=== PATIENT | female | born 2000 | race Caucasian/White ===

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

== ENCOUNTER 2022-09-14 17:05 | Emergency (ER) | payer MEDICAID, SELFPAY ==
[2022-09-14 17:07] VITALS: BP 103/74; PULSE 86; RESP 16; TEMP 36.3; O2SAT 97; BMI 28.1
--- NOTE | 2022-09-14 17:38 | EX.ED.GENINJ ---
HPI <BRYSON Multani - Last Filed: 09/14/22 18:11> History of Present Illness Chief Complaint: Laceration Narrative Narrative: Patient presenting today because her bellybutton ring got ripped out this afternoon. She states that she was washing dishes and the piercing got stuck on the edge of the sink and pulled out. She states she has had a tetanus in the last 5 years. She is not on any blood thinners. PFSH <BRYSON Multani - Last Filed: 09/14/22 18:11> PFSH Medical History IUD (intrauterine device) in place Home Medications levonorgestrel 14 mcg/24 hrs (3 yrs) 13.5 mg intrauterine device (Ivonne) 1 device intrauterine ONCE 02/23/21 [History Last Taken Unknown] Allergy/AdvReac Type Severity Reaction Status Date / Time amoxicillin Allergy Hives Verified 09/14/22 17:08 Penicillins [PCN] Allergy Hives Verified 09/14/22 17:08 adhesive tape AdvReac Rash Verified 09/14/22 17:08 Family History Grandmother Hypertension Other Brain cancer Breast cancer Liver cancer Lung cancer Surgical History s/p tongue clipped Social History Smoking Status: Current every day smoker tobacco type: cigarettes alcohol intake: never substance use type: does not use caffeine: Yes what type of physical activity do you participate in: walking seatbelt use: always additional social history: [facility] [employer] ROS <BRYSON Multani - Last Filed: 09/14/22 18:11> ROS ED Constitutional Constitutional ED: Denies chills or fever(s) Cardiovascular Cardiovascular: Denies chest pain or palpitations Respiratory/Chest Respiratory/Chest: Denies cough or dyspnea Gastrointestinal Gastrointestinal: Denies abdominal pain, nausea or vomiting Musculoskeletal Musculoskeletal: Denies arthralgias or myalgias Integumentary Reports laceration Neurologic Neurologic: Denies weakness Psychiatric Psychiatric: Denies anxiety, depression, suicidal ideation or suicidal thoughts EXAM <BRYSON Multani - Last Filed: 09/14/22 18:11> Physical Exam Const Vital Signs: 09/14/22 17:07 Temperature 97.4 F L Temperature Source Temporal Pulse Rate 86 Respiratory Rate 16 Blood Pressure 103/74 Blood Pressure Mean 83 Pulse Ox 97 Oxygen Delivery Method Room Air Positive well nourished, well developed and no apparent distress General Appearance ED: well developed HEENT Reports normocephalic and head/scalp atraumatic Mouth ED: Yes moist mucous membranes normal Eyes PERRL and EOMs intact bilaterally Neck full ROM and supple Chest Wall inspection of chest normal Resp normal respiratory effort and clear to auscultation bilaterally Cardio regular rate and regular rhythm GI soft to palpation, non-tender, non-distended and no masses Back/Spine normal ROM and normal to inspection Extremity normal to inspection and full ROM Neuro oriented x3, CN's II-XII intact bilaterally, moves all extremities, no focal motor deficits and no sensory deficits noted Sensorium / Orientation: awake and alert Psych mental status grossly normal and thought process normal Skin Skin Narrative: Patient's bellybutton ring pulled out, but did not rip through the skin. There is no laceration but there is mild bleeding to the area. <Dr. Cb Foster MD - Last Filed: 09/14/22 22:03> Physical Exam Const Vital Signs: 09/14/22 17:07 Temperature 97.4 F L Temperature Source Temporal Pulse Rate 86 Respiratory Rate 16 Blood Pressure 103/74 Blood Pressure Mean 83 Pulse Ox 97 Oxygen Delivery Method Room Air MDM <BRYSON Multani - Last Filed: 09/14/22 18:11> [facility] Narrative Medical decision making narrative: Patient presenting today because her bellybutton ring accidentally got pulled out this afternoon. There is no laceration to the area or anything that needs sutured. The piercing got pulled through, it did not get ripped out, but as the ball at the top of the piercing went through it caused irritation and bleeding on its way out. The area was cleaned with chlorhexidine, bacitracin ointment was applied, and a bandage was placed. I have educated her on signs of infection to look out for. She will be discharged home in stable condition and is comfortable with plan. <Dr. Cb Foster MD - Last Filed: 09/14/22 22:03> [facility] Treatment and Re-Evaluation Narrative: I have personally performed a face to face assessment of the patient and have reviewed the ÁNGEL Note. I performed a substantive portion of the visit including all aspects of the following. My king findings include: History: Patient had her navel ring pulled out when she accidentally caught it on the edge of a sink standing up to reach for something above it. She states it came out complete and there were no parts missing. She had some bleeding from her navel. She feels she pulled it right through the hole that it was in. It did not tear the skin. No other complaints. Exam: There is a little bit of blood at each tip. But there is no tear of the skin. There is nothing that can be sutured repair. Her abdomen overall is benign. Medical Decision Making: This area is clean. It should heal well by secondary intention. We did talk about signs of infection. We talked about regular cleansing and using antibiotic topical ointment [id number] on it. Discharge Plan Triage Chief Complaint: Laceration ED Midlevel Provider: Radha Wright ED Provider: Cb Foster Dx/Rx/DC Orders Clinical Impression: Laceration Instructions: ED Laceration Small or ... Prescriptions: No Action Ivonne 14 mcg/24 hrs (3 yrs) 13.5 mg intrauterine device 1 device intrauterine ONCE Rx Instructions: as a single dose Primary Care Provider: Kyleigh Weber Referrals: Kyleigh Weber MD [Primary Care Provider] - As Needed Activity Restrictions/Additional Instructions: Keep an eye out for any signs of infection such as increased redness, swelling, pus-like discharge. Disposition Disposition: Home, Self Care
== END 2022-09-14 18:29 | disposition home or self-care (01) ==
PROVIDERS: Emergency Provider Emergency Medicine; PCP Pediatrics; Visit Provider Emergency Medicine
DX: S31.125A Laceration of abdominal wall with foreign body, periumbilic region without penetration into peritoneal cavity, initial encounter (principal); F17.210 Nicotine dependence, cigarettes, uncomplicated; W26.8XXA Contact with other sharp object(s), not elsewhere classified, initial encounter
CPT/HCPCS: 99282

== ENCOUNTER 2022-10-08 07:24 | Emergency (ER) | payer MEDICAID, SELFPAY ==
[2022-10-08 07:24] VITALS: BP 120/87; PULSE 75; RESP 16; TEMP 36.8; O2SAT 100; BMI 29.0
--- NOTE | 2022-10-08 07:50 | ED.VIS.DENTA ---
HPI History of Present Illness Chief Complaint: Dental Informant: patient Narrative Narrative: Patient has been having painful right maxillary molars 1 and 2 for the last couple months, she has seen a dentist and is supposed to get some of these teeth pulled in addition to the wisdom tooth that is coming in behind it, she states that in the last several days the pain has gradually worsened without any obvious etiology, and after calling dentistry this morning that she was advised to come to the hospital to get prescribed antibiotics. She is allergic to penicillin was on clindamycin successfully before. She denies any fevers or chills, or drainage/foul taste in her mouth, or any other systemic symptoms or facial swelling. PFSH PFSH Medical History IUD (intrauterine device) in place Home Medications levonorgestrel 14 mcg/24 hrs (3 yrs) 13.5 mg intrauterine device (Ivonne) 1 device intrauterine ONCE 02/23/21 [History Last Taken Unknown] clindamycin HCl 150 mg capsule 300 mg PO 4X/DAY #80 CAPSULES 10/08/22 [Rx Last Taken Unknown] Allergy/AdvReac Type Severity Reaction Status Date / Time amoxicillin Allergy Hives Verified 10/08/22 07:27 Penicillins [PCN] Allergy Hives Verified 10/08/22 07:27 adhesive tape AdvReac Rash Verified 10/08/22 07:27 Family History Grandmother Hypertension Other Brain cancer Breast cancer Liver cancer Lung cancer Surgical History s/p tongue clipped Social History Smoking Status: Current every day smoker tobacco type: cigarettes alcohol intake: never substance use type: does not use caffeine: Yes what type of physical activity do you participate in: walking seatbelt use: always additional social history: Goes to [employer] ROS ROS ED Constitutional Constitutional ED: Denies chills or fever(s) Eyes Eyes: Denies change in vision or double vision ENT ENT ED: Reports dental pain; Denies sinus pain or throat swelling Cardiovascular Cardiovascular: Denies chest pain or palpitations Respiratory/Chest Respiratory/Chest: Denies cough or dyspnea Integumentary Denies abscess or rash Neurologic Neurologic: Denies headache(s), paresthesias or weakness EXAM Physical Exam Const Vital Signs: 10/08/22 07:24 Temperature 98.2 F Temperature Source Temporal Pulse Rate 75 Respiratory Rate 16 Blood Pressure 120/87 H Blood Pressure Mean 98 Pulse Ox 100 Oxygen Delivery Method Room Air Positive well nourished and well developed General Appearance ED: well developed and NAD HEENT HEENT Narrative: Very tender teeth 2-3, no subluxation, loosening, obvious abscess or discharge expressible. No trismus. Tooth #1 is partially erupted and nontender and without signs of infection. There is previous silver-colored filling in tooth #3, this is the less tender tooth. Face and Sinus: sinuses nontender Throat: posterior oropharynx normal Eyes PERRL and EOMs intact bilaterally Neck no lymphadenopathy and supple Resp normal respiratory effort Neuro oriented x3 and CN's II-XII intact bilaterally Sensorium / Orientation: alert Gait (Neuro): normal gait Psych mental status grossly normal and thought process normal Skin no rashes or lesions noted and no wounds MDM MDM MDM Narrative Medical decision making narrative: Patient is well-appearing does not require prescription narcotics at this time and is advised to take NSAIDs, prescribed clindamycin, also advised to eat yogurt or take a probiotic while on this medication to prevent antibiotic associated diarrhea. She does not have a history of candidal infections while on clindamycin in the past which we also discussed. Discharge Plan Triage Chief Complaint: Dental ED Provider: Anoop Lassiter Dx/Rx/DC Orders Clinical Impression: Infected dental caries Instructions: ED Dental Pain Prescriptions: New clindamycin HCl 150 mg capsule 300 mg PO 4X/DAY Qty: 80 0RF No Action Ivonne 14 mcg/24 hrs (3 yrs) 13.5 mg intrauterine device 1 device intrauterine ONCE Rx Instructions: as a single dose Primary Care Provider: Kyleigh Weber Referrals: Kyleigh Weber MD [Primary Care Provider] - Dentist,Your [STAFF PHYSICIAN] - 5-7 Days Disposition Disposition: Home, Self Care
== END 2022-10-08 08:10 | disposition home or self-care (01) ==
PROVIDERS: Emergency Provider Emergency Medicine; PCP Pediatrics; Visit Provider Emergency Medicine
DX: K02.9 Dental caries, unspecified (principal); F17.210 Nicotine dependence, cigarettes, uncomplicated
CPT/HCPCS: 99281; 99282

== ENCOUNTER → 2022-10-12 | Outpatient (CLI) | payer MEDICAID, SELFPAY ==
--- NOTE | 2022-10-12 12:50 | US_ITS ---
ACR Level 3 findings have been noted. An addendum which confirms receipt of the report will follow. STUDY: ULTRASOUND OF THE FEMALE PELVIS - COMPLETE REASON FOR EXAM: Female, 22 years old. AUB IUD CHECK LMP: TECHNIQUE: Transabdominal and Transvaginal TECHNICAL QUALITY: Adequate. COMPARISON: CT abdomen and pelvis February 06, 2021 FINDINGS: The uterus is anteverted and is in a midline position. The uterus measures 8.5 x 4.6 x 3.3 cm. Normal uterine cervix. The endometrium measures 2.6 mm in thickness, and is hyperechoic. There is no demonstrated endometrial mass. There is no demonstrated myometrial mass. I.U.D. - The patient does have an I.U.D. since the prior study the IUD appears to migrated into the lower uterine segment bordering the proximal aspect of the cervix. The left-sided prominent is somewhat difficult to visualize. The right-sided prominence visualized in the right side of the endometrium more lower uterine segment. The right ovary is visualized. The right ovary measures 31 x 2.4 x 1.7 cm. There is no right ovarian cyst or ovarian mass. There is no visualized right adnexal mass or complex lesion. There is normal arterial and normal venous vascularity. No torsion. The left ovary is visualized. The left ovary measures 3.1 x 2.5 x 2.0 cm. There is no left ovarian cyst or ovarian mass. There is no visualized left adnexal mass or complex lesion. There is normal arterial and normal venous vascularity. No torsion. There is no fluid in the cul-de-sac. The pre void volume of the bladder was 364 ml. . Polycystic ovary disease: No. US/Transvaginal Non- IMPRESSION: Since prior study February 06, 2021 CT abdomen pelvis, Migrated IUD into the lower uterine segment proximal cervix. Recommend FINANCIAL ECONOMIST consult for possible repositioning. Electronically Signed: Corina Salinas MD at 15:35 EDT ,
--- NOTE | 2022-10-12 12:50 | US_ITS ---
ACR Level 3 findings have been noted. An addendum which confirms receipt of the report will follow. STUDY: ULTRASOUND OF THE FEMALE PELVIS - COMPLETE REASON FOR EXAM: Female, 22 years old. AUB IUD CHECK LMP: TECHNIQUE: Transabdominal and Transvaginal TECHNICAL QUALITY: Adequate. COMPARISON: CT abdomen and pelvis February 06, 2021 FINDINGS: The uterus is anteverted and is in a midline position. The uterus measures 8.5 x 4.6 x 3.3 cm. Normal uterine cervix. The endometrium measures 2.6 mm in thickness, and is hyperechoic. There is no demonstrated endometrial mass. There is no demonstrated myometrial mass. I.U.D. - The patient does have an I.U.D. since the prior study the IUD appears to migrated into the lower uterine segment bordering the proximal aspect of the cervix. The left-sided prominent is somewhat difficult to visualize. The right-sided prominence visualized in the right side of the endometrium more lower uterine segment. The right ovary is visualized. The right ovary measures 31 x 2.4 x 1.7 cm. There is no right ovarian cyst or ovarian mass. There is no visualized right adnexal mass or complex lesion. There is normal arterial and normal venous vascularity. No torsion. The left ovary is visualized. The left ovary measures 3.1 x 2.5 x 2.0 cm. There is no left ovarian cyst or ovarian mass. There is no visualized left adnexal mass or complex lesion. There is normal arterial and normal venous vascularity. No torsion. There is no fluid in the cul-de-sac. The pre void volume of the bladder was 364 ml. . Polycystic ovary disease: No. US/Pelvic (Non ) IMPRESSION: Since prior study February 06, 2021 CT abdomen pelvis, Migrated IUD into the lower uterine segment proximal cervix. Recommend MACHINE PACKAGING TECHNICIAN consult for possible repositioning. Electronically Signed: Corina Salinas MD at 15:35 EDT ,
== END | disposition home or self-care (01) ==
LOC: US 12:48
PROVIDERS: PCP Pediatrics; Referring Provider Nurse Practitioner Women's Health; Visit Provider Nurse Practitioner Women's Health
DX: R10.2 Pelvic and perineal pain (principal); Z30.431 Encounter for routine checking of intrauterine contraceptive device
CPT/HCPCS: 76830; 76856

== ENCOUNTER → 2023-01-17 | Outpatient (CLI) | payer SELFPAY ==
[2023-01-17 19:27] LABS: hCG Titer Quant., Serum 14831 mIU/mL (1-3)
== END | disposition home or self-care (01) ==
PROVIDERS: PCP Pediatrics; Visit Provider Registered Nurse
DX: N91.2 Amenorrhea, unspecified (principal)
CPT/HCPCS: 36415; 84702

== ENCOUNTER 2023-01-24 03:16 | Emergency (ER) | payer MEDICAID, SELFPAY ==
[2023-01-24 03:16] VITALS: BP 129/69; PULSE 78; RESP 16; TEMP 36.8; O2SAT 99; BMI 27.2
--- NOTE | 2023-01-24 03:49 | ED.VIS.FEGU ---
HPI HPI - Female History of Present Illness Chief Complaint: Narrative Narrative: Patient is a 22-year-old female currently 4-6 weeks presenting for concern of miscarriage. Patient states that she has been having increased nausea, fatigue and feels that her body is harder than normal and looked up her symptoms and concern that she having a silent miscarriage. She denies any lower abdominal pain or vaginal bleeding. She denies any urinary symptoms. She been try to drink more fluid. Has had 2 prior early miscarriages. No other complaints or concerns at this time. PFSH PFSH Medical History IUD (intrauterine device) in place Home Medications fluconazole 150 mg tablet 150 mg PO .COMPLEX #2 tabs 10/22/22 [Rx Last Taken Unknown] Allergy/AdvReac Type Severity Reaction Status Date / Time amoxicillin Allergy Hives Verified 01/24/23 03:19 Penicillins [PCN] Allergy Hives Verified 01/24/23 03:19 adhesive tape AdvReac Rash Verified 01/24/23 03:19 Family History Grandmother Hypertension Other Brain cancer Breast cancer Liver cancer Lung cancer Surgical History s/p tongue clipped Social History current occupational status: unemployed Smoking Status: Current every day smoker tobacco type: cigarettes alcohol intake: never substance use type: does not use caffeine: Yes what type of physical activity do you participate in: walking seatbelt use: always ROS ROS ED Constitutional Constitutional ED: Reports other Details: Fatigue ; Denies chills or fever(s) Cardiovascular Cardiovascular: Denies chest pain Gastrointestinal Gastrointestinal: Reports nausea and vomiting; Denies abdominal pain Genitourinary Genitourinary ED: Denies dysuria, hematuria or urinary frequency Musculoskeletal Musculoskeletal: Denies arthralgias or myalgias Integumentary Denies rash Neurologic Neurologic: Denies headache(s) or weakness Psychiatric Psychiatric: Reports anxiety EXAM Physical Exam Const Vital Signs: 01/24/23 03:16 Temperature 98.2 F Temperature Source Temporal Pulse Rate 78 Respiratory Rate 16 Blood Pressure 129/69 H Blood Pressure Mean 89 Pulse Ox 99 Oxygen Delivery Method Room Air Positive well nourished and well developed General Appearance ED: well developed and NAD HEENT Reports moist mucous membranes Neck supple Chest Wall inspection of chest normal and palpation of chest normal Resp normal respiratory effort and clear to auscultation bilaterally Cardio regular rate, regular rhythm and no JVD GI normal to inspection, nondistended, normoactive bowel sounds, soft to palpation and non-tender Narrative: Deferred Extremity normal to inspection Neuro oriented x3 Sensorium / Orientation: alert Psych Mood & Affect: anxious Skin no rashes or lesions noted MDM MDM MDM Narrative Medical decision making narrative: Patient is evaluated for concern of miscarriage. I counseled her that her symptoms are not consistent with a miscarriage especially her lack of vaginal bleeding or abdominal pain. Chart review shows that patient had a MASCARA MOLDER visit through [facility] on 01/17 [place] [id number]. She is not complain of any urinary symptoms. I do not think a urinalysis is needed. She is not having any vaginal bleeding and I do not think requires RhoGAM. I do not think she requires workup for ectopic . Counseled that from an emergency standpoint she does not have any obstetric emergency based on my physical exam and her history. She is reassured by this. I did offer bedside ultrasound. This showed single intrauterine gestation with heart rate of 119. Patient was quite relieved to see this. I did peer financial counselor her that there is no way to prevent a miscarriage and gave her return precautions to the emergency room. I did peer financial counselor her as well that a silent miscarriage is not a medical term and she likely would be better off not googling her symptoms. Her mother is in the room who agrees. Is given return precautions. Is cleared to return to work. Discharge home in stable condition Discharge Plan Triage Chief Complaint: ED Provider: Dayna Rich Dx/Rx/DC Orders Clinical Impression: Concern about losing without diagnosis, Instructions: ED Established ... Prescriptions: No Action fluconazole 150 mg tablet 150 mg PO .COMPLEX Qty: 2 0RF Rx Instructions: 150 mg PO take one po now and repeat in 3 days Primary Care Provider: Kyleigh Weber Referrals: Kyleigh Weber MD [Primary Care Provider] - Activity Restrictions/Additional Instructions: Your ultrasound showed a single intrauterine with a heart rate of 119 bpm today. This is normal for early . Please continue to follow-up with her MASCARA MOLDER. Disposition Disposition: Home, Self Care Discharge Date/Time: 01/24/23 03:54
[2023-01-24 03:53] VITALS: BP 129/69; PULSE 78; RESP 16
== END 2023-01-24 03:54 | disposition home or self-care (01) ==
PROVIDERS: Emergency Provider Emergency Medicine; PCP Pediatrics; Visit Provider Emergency Medicine
DX: Z03.79 Encounter for other suspected maternal and fetal conditions ruled out (principal); Z3A.01 Less than 8 weeks gestation of pregnancy; F17.210 Nicotine dependence, cigarettes, uncomplicated; F41.9 Anxiety disorder, unspecified
CPT/HCPCS: 99282

== ENCOUNTER → 2023-02-01 | Outpatient (CLI) | payer MEDICAID, SELFPAY ==
--- NOTE | 2023-02-01 09:29 | US_ITS ---
STUDY: FIRST TRIMESTER OBSTETRICAL ULTRASOUND REASON FOR EXAM: Female, 22 years old . dating. LMP: November 19, 2022. TECHNIQUE: Transvaginal TECHNICAL QUALITY: Adequate. PRIOR ULTRASOUND: None. FINDINGS: There is visualization of a single gestational sac in a normal intrauterine position. The mean sac diameter (MSD) measures 2.78 cm, . gestational sac shape is within normal limits. There is a visualized yolk sac. The yolk sac measures 4.3 mm. The placenta is non-visualized. There is visualization of a live embryo. The crown-rump length (CRL) measures 1.69 cm, indicating an estimated gestational age (EGA) of 8 weeks, 0 days. There is demonstrated cardiac activity with a heart rate of 163 bpm. The estimated gestation age (EGA) by LMP is 10 weeks, 5 days. The estimated date of delivery (JACQUELINE) by LMP is August 25, 2023. The estimated gestation age (EGA) by US is 8 weeks, 0 days. The estimated date of delivery (JACQUELINE) by US is September 13, 2023. The uterus measures 10.5 cm x 7.9 cm x 6.1 cm. There is evidence of a sub-chorionic hematoma measuring 2.2 cm x 3.2 cm x 1.9 cm. There is no demonstrated uterine fibroid. The cervix is closed. The right ovary measures 3.8 cm x 3.3 cm x 1.5 cm. There is no right ovarian cyst. There is no visualized right adnexal mass or complex lesion. The left ovary measures 3.4 cm x 4.1 cm x 2.2 cm. There is a 1.1 cm x 1.5 cm x 0.9 cm left ovarian follicle. There is no visualized left adnexal mass or complex lesion. There is no fluid in the cul de sac. US/Transvaginal w/Preg US IMPRESSION: Single live intrauterine gestation with a gestational age of 8 weeks. Small subchorionic hematoma. Left ovarian follicle. Electronically Signed: Dandre Mcarthur MD at 13:43 EDT ,
== END | disposition home or self-care (01) ==
LOC: US 09:29
PROVIDERS: PCP Pediatrics; Referring Provider Registered Nurse; Visit Provider Registered Nurse
DX: Z36.87 Encounter for antenatal screening for uncertain dates (principal); N91.2 Amenorrhea, unspecified
CPT/HCPCS: 76817

== ENCOUNTER → 2023-02-19 | Outpatient (CLI) | payer MEDICAID, SELFPAY ==
[2023-02-19 11:58] LABS: Absolute Lymphocyte Count 2.42 X10^3/uL (0.83-4.51); Absolute Neutrophil Count 6.7 X10^3/uL (2.0-7.7); Basophil# 0.05 X10^3/uL; Basophil% 0.5 % (0-1); Eosinophil# 0.04 X10^3/uL; Eosinophils% 0.4 % (0-5); Hematocrit 41.9 % (37-47); Hemoglobin 13.5 g/dL (12.0-15.0); Lymphocyte # 2.42 X10^3/ul (0.83-4.51); Lymphocyte % 24.5 % (19-41); Mean Corp Hgb Conc 32.2 g/dL (32-36); Mean Corpuscular Volume 86.7 fL (81-99); Mean Platelet Vol. 9.8 fl (6.2-12.0); Monocyte# 0.68 X10^3/uL; Monocyte% 6.9 % (0-10); NRBC Flagged by Analyzer 0 % (0-5); Neutrophil # 6.66 X10^3/uL (2.7-7.7); Neutrophil % 67.5 % (47-70); Platelet Count 297 K/mm3 (150-450); RBC Distribution Width CV 12.9 % (11.6-14.6); RBC Distribution Width SD 40.7 fl (35.1-43.9); Red Blood Count 4.83 M/mm3 (4.2-5.4); White Blood Count 9.9 K/mm3 (4.4-11.0)
[2023-02-19 12:47] LABS: NATERA MAILED SPECIMEN
[2023-02-19 15:59] LABS: HIV - WCH Non-Reactive (Nonreactive); Hepatitis B Surface Antigen Non-Reactive (Nonreactive); Hepatitis C Antibody Non-Reactive (Nonreactive); Rubella IgG Reactive (Nonreactive); Syphilis Antibodies Non-reactive
[2023-02-21 20:07] LABS: Chlamydia By Nucleic Acid AMP Negative (Negative); Gonococcus By Nucleic Acid AMP Negative (Negative)
== END | disposition home or self-care (01) ==
PROVIDERS: Referring Provider Registered Nurse; Visit Provider Registered Nurse
DX: Z34.81 Encounter for supervision of other normal pregnancy, first trimester (principal); Z31.5 Encounter for procreative genetic counseling
CPT/HCPCS: 36415; 85025; 86703; 86762; 86780; 86803; 86850; 86900; 86901; 87086; 87088; 87340; 87491; 87591

== ENCOUNTER 2023-04-29 00:10 | Outpatient (CLI) | payer MEDICAID, SELFPAY ==
[2023-04-29 00:36] VITALS: TEMP 37.3; O2SAT 100
[2023-04-29 00:37] VITALS: BP 120/80; PULSE 115
[2023-04-29 01:02] VITALS: BMI 28.9
[2023-04-29 01:34] LABS: Absolute Lymphocyte Count 2.36 X10^3/uL (0.83-4.51); Absolute Neutrophil Count 9.6 X10^3/uL (2.0-7.7); Basophil# 0.04 X10^3/uL; Basophil% 0.3 % (0-1); Eosinophil# 0.08 X10^3/uL; Eosinophils% 0.6 % (0-5); Hematocrit 36.3 % (37-47); Hemoglobin 11.7 g/dL (12.0-15.0); Lymphocyte # 2.36 X10^3/ul (0.83-4.51); Lymphocyte % 17.9 % (19-41); Mean Corp Hgb Conc 32.2 g/dL (32-36); Mean Corpuscular Hgb 28.3 pg (27.0-32.0); Mean Corpuscular Volume 87.9 fL (81-99); Mean Platelet Vol. 9.6 fl (6.2-12.0); Monocyte# 1.08 X10^3/uL; Monocyte% 8.2 % (0-10); NRBC Flagged by Analyzer 0 % (0-5); Neutrophil # 9.59 X10^3/uL (2.7-7.7); Neutrophil % 72.7 % (47-70); Platelet Count 308 K/mm3 (150-450); RBC Distribution Width CV 13.3 % (11.6-14.6); RBC Distribution Width SD 43.5 fl (35.1-43.9); Red Blood Count 4.13 M/mm3 (4.2-5.4); White Blood Count 13.2 K/mm3 (4.4-11.0)
[2023-04-29 01:46] LABS: Prothrombin Time (Protime)PT. 13.1 SECONDS (11.7-14.9)
[2023-04-29 01:48] LABS: Partial Thromboplast Time 28.7 Seconds (24.1-36.2)
[2023-04-29 01:55] LABS: Fibrinogen 465 mg/dl (203-444)
[2023-04-29 02:15] VITALS: BP 106/53; TEMP 36.7
[2023-04-29 02:16] VITALS: PULSE 83; O2SAT 99
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
== END 2023-04-29 03:22 | disposition home or self-care (01) ==
LOC: WPOUT 00:21 → WP 00:21
PROVIDERS: Referring Provider Obstetrics & Gynecology; Visit Provider Obstetrics & Gynecology
DX: Z04.1 Encounter for examination and observation following transport accident (principal); O99.332 Smoking (tobacco) complicating pregnancy, second trimester; Z3A.20 20 weeks gestation of pregnancy; F17.210 Nicotine dependence, cigarettes, uncomplicated; Z56.0 Unemployment, unspecified
CPT/HCPCS: 36415; 59025; 59050; 85025; 85384; 85461; 85610; 85730; 86850; 86900; 86901; 96372; J2790

== ENCOUNTER → 2023-06-11 | Outpatient (CLI) | payer MEDICAID, SELFPAY ==
[2023-06-11 14:27] LABS: Absolute Lymphocyte Count 2.03 X10^3/uL (0.83-4.51); Absolute Neutrophil Count 8.7 X10^3/uL (2.0-7.7); Basophil# 0.04 X10^3/uL; Basophil% 0.3 % (0-1); Eosinophil# 0.06 X10^3/uL; Eosinophils% 0.5 % (0-5); Hemoglobin 11.4 g/dL (12.0-15.0); Lymphocyte # 2.03 X10^3/ul (0.83-4.51); Lymphocyte % 17.2 % (19-41); Mean Corp Hgb Conc 31.7 g/dL (32-36); Mean Corpuscular Hgb 27.9 pg (27.0-32.0); Mean Corpuscular Volume 88.2 fL (81-99); Mean Platelet Vol. 9.2 fl (6.2-12.0); Monocyte% 7.6 % (0-10); NRBC Flagged by Analyzer 0 % (0-5); Neutrophil # 8.72 X10^3/uL (2.7-7.7); Neutrophil % 73.8 % (47-70); Platelet Count 311 K/mm3 (150-450); RBC Distribution Width CV 12.6 % (11.6-14.6); RBC Distribution Width SD 40.7 fl (35.1-43.9); Red Blood Count 4.08 M/mm3 (4.2-5.4); White Blood Count 11.8 K/mm3 (4.4-11.0)
[2023-06-11 15:04] LABS: Glucose Challenge Gest 1H 50g 94 mg/dL (70-140)
[2023-06-11 15:39] LABS: HIV - WCH Non-Reactive (Nonreactive); Syphilis Antibodies Non-reactive
== END | disposition home or self-care (01) ==
LOC: PAVLAB 14:04
PROVIDERS: Referring Provider Registered Nurse; Visit Provider Registered Nurse
DX: Z34.90 Encounter for supervision of normal pregnancy, unspecified, unspecified trimester (principal); Z3A.00 Weeks of gestation of pregnancy not specified
CPT/HCPCS: 36415; 82950; 85025; 86703; 86780

== ENCOUNTER 2023-07-19 10:51 | Outpatient (CLI) | payer MEDICAID, SELFPAY ==
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
== END 2023-07-19 23:59 | disposition home or self-care (01) ==
LOC: PAVLAB 10:52
PROVIDERS: Referring Provider Registered Nurse; Visit Provider Registered Nurse
DX: Z34.93 Encounter for supervision of normal pregnancy, unspecified, third trimester (principal); Z3A.33 33 weeks gestation of pregnancy
CPT/HCPCS: 36415; 86850; 86900; 86901

== ENCOUNTER → 2023-08-16 | Outpatient (CLI) | payer MEDICAID, SELFPAY ==
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
--- OUTSIDE RECORDS SUMMARY | 2023-08-16 12:28 | XMS RPT_ITS | CCD ---
Author Name Unknown Address [address] [place] [address] Organization [facility] Care Team Providers Care Polisher Sand Name Role Phone Jami Weber MD Primary Care Provider Unavailable Primary Care Provider Unavailjennie e JAMI WEBER Primary Care Unavailable JAMI WEBER Primary Care Unavailable [facility], Primary Care Unavailable JODIE BE Referring Unavailable JODIE BE Attending Unavailable Allergies Allergy Classification Reported Allergen(s) Allergy Type Date of Onset Reaction(s) Facility (6 sources) Amoxicillin; Translations: [AMOXICILLIN] Drug Allergy 03-06-2005 [facility] Work Phone: (6 sources) Penicillins; Translations: [PENICILLINS] Propensity to adverse reactions 08-23-2005 [facility] Work Phone: (3 sources) Adhesive Tape-Silicones; Translations: [ADHESIVE TAPE-SILICONES] Drug Allergy 02-23-2021 [facility] Medications Current Medications Medication Drug Class(es) [...] 98.01 [degF] Alexy Stringer MD Work Phone: [facility] 03-30-2023 08:34-0400 Body weight 69.85 kg Alexy Stringer MD Work Phone: [facility] 03-30-2023 08:34-0400 Diastolic blood pressure 68 mm[Hg] Alexy Stringer MD Work Phone: [facility] 03-30-2023 08:34-0400 Heart rate 96 /min Alexy Stringer MD Work Phone: [facility] 03-30-2023 08:34-0400 Respiratory rate 18 /min Alexy Stringer MD Work Phone: [facility] 03-30-2023 08:34-0400 SaO2% (BldA) [Mass fraction] 98 % Alexy Stringer MD Work Phone: [facility] 03-30-2023 08:34-0400 Systolic blood pressure 117 mm[Hg] Alexy Stringer MD Work Phone: [facility] 12-04-2022 14:26-0400 Body temperature 98.29 [degF] Deonte Gaston APRN.TELECOMMUNICATIONS SWITCH TECHNICIAN Work Phone: [facility] 12-04-2022 14:26-0400 Body weight 70.58 kg Deonte Gaston APRN.TELECOMMUNICATIONS SWITCH TECHNICIAN Work Phone: [facility] 12-04-2022 14:26-0400 Diastolic blood pressure 64 mm[Hg] Deonte Gaston APRN.TELECOMMUNICATIONS SWITCH TECHNICIAN Work Phone: [facility] 12-04-2022 14:26-0400 Heart rate 111 /min Deonte Gaston APRN.TELECOMMUNICATIONS SWITCH TECHNICIAN Work Phone: [facility] 12-04-2022 14:26-0400 Respiratory rate 16 /min Deonte Alek BOWLING FLOOR MANAGER.TELECOMMUNICATIONS SWITCH TECHNICIAN Work Phone: [facility] 12-04-2022 14:26-0400 SaO2% (BldA) [Mass fraction] 99 % Deonte Alek BOWLING FLOOR MANAGER.TELECOMMUNICATIONS SWITCH TECHNICIAN Work Phone: [facility] 12-04-2022 14:26-0400 Systolic blood pressure 122 mm[Hg] Deonte Alek BOWLING FLOOR MANAGER.TELECOMMUNICATIONS SWITCH TECHNICIAN Work Phone: [facility] 05-15-2022 08:31-0500 Body temperature 98.01 [degF] Shruthi Mendoza BOWLING FLOOR MANAGER.TELECOMMUNICATIONS SWITCH TECHNICIAN Work Phone: [facility] 05-15-2022 08:31-0500 Body weight 74.84 kg Shruthi Mendoza BOWLING FLOOR MANAGER.TELECOMMUNICATIONS SWITCH TECHNICIAN Work Phone: [facility] 05-15-2022 08:31-0500 Diastolic blood pressure 78 mm[Hg] Shruthi Mendoza BOWLING FLOOR MANAGER.TELECOMMUNICATIONS SWITCH TECHNICIAN Work Phone: [facility] 05-15-2022 08:31-0500 Heart rate 84 /min Shruthi Mendoza BOWLING FLOOR MANAGER.TELECOMMUNICATIONS SWITCH TECHNICIAN Work Phone: [facility] 05-15-2022 08:31-0500 Respiratory rate 18 /min Shruthi Mendoza BOWLING FLOOR MANAGER.TELECOMMUNICATIONS SWITCH TECHNICIAN Work Phone: [facility] 05-15-2022 08:31-0500 SaO2% (BldA) [Mass fraction] 97 % Shruthi Mendoza BOWLING FLOOR MANAGER.TELECOMMUNICATIONS SWITCH TECHNICIAN Work Phone: [facility] 05-15-2022 08:31-0500 Systolic blood pressure 110 mm[Hg] Shruthi Mendoza BOWLING FLOOR MANAGER.TELECOMMUNICATIONS SWITCH TECHNICIAN Work Phone: [facility] 01-04-2022 15:35-0400 Body height 159.4 cm Jami Weber MD Work Phone: [facility] 01-04-2022 15:35-0400 Body mass index (BMI) [Percentile] Per age and sex 94.61 % Jami Weber MD Work Phone: [facility] 01-04-2022 15:35-0400 Body temperature 98.29 [degF] Jami eWber MD Work Phone: [facility] 01-04-2022 15:35-0400 Body weight 78.88 kg Jami Weber MD Work Phone: [facility] 01-04-2022 15:35-0400 Diastolic blood pressure 60 mm[Hg] Jami Weber MD Work Phone: [facility] 01-04-2022 15:35-0400 Heart rate 68 /min Jami Weber MD Work Phone: [facility] 01-04-2022 15:35-0400 Respiratory rate 16 /min Jami Weber MD Work Phone: [facility] 01-04-2022 15:35-0400 Systolic blood pressure 104 mm[Hg] Jami Webre MD Work Phone: [facility] 12-11-2021 15:23-0400 Body temperature 98.01 [degF] Jami Weber MD Work Phone: [facility] 12-11-2021 15:23-0400 Body weight 80.31 kg Jami Weber MD Work Phone: [facility] 12-11-2021 15:23-0400 Diastolic blood pressure 66 mm[Hg] Jami Weber MD Work Phone: [facility] 12-11-2021 15:23-0400 Heart rate 78 /min Jami Weber MD Work Phone: [facility] 12-11-2021 15:23-0400 Respiratory rate 18 /min Jami Weber MD Work Phone: [facility] 12-11-2021 15:23-0400 Systolic blood pressure 102 mm[Hg] Jami Weber MD Work Phone: [facility] Encounters Encounter Date Encounter Type Care Provider Facility Start: 05-20-2023 End: 05-20-2023 ambulatory NO PRIMARY CARE [facility] Start: 03-30-2023 End: 03-30-2023 ambulatory JAMI WEBER Facility:[facility] Start: 03-30-2023 End: 03-30-2023 Patient encounter procedure Alexy Stringer MD Work Phone: [facility] Procedures Date Procedure Procedure Detail Performing Clinician Start: 01-27-2021 Adult depression screening assessment Jami Weber MD Work Phone: Plan of Treatment Date Care Activity Detail Author Start: 01-27-2024 Urine microalbumin profile [facility] Start: 02-15-2023 Influenza vaccination [facility] Start: 06-17-2022 DEPRESSION ASSESSMENT DEPRESSION ASSESSMENT [facility] Start: 02-15-2022 Influenza vaccination INFLUENZA (#1) [facility] Start: 01-27-2022 Adult depression screening assessment DEPRESSION SCREENING [facility] Start: 06-17-2021 DEPRESSION ASSESSMENT DEPRESSION ASSESSMENT [facility] Start: 2020 CHLAMYDIA SCREENING (18-24) CHLAMYDIA SCREENING (18-24) [facility] Start: 2020 GC (GONORRHEA) SCREENING (18-24) GC (GONORRHEA) SCREENING (18-24) [facility] Start: 2020 HEPATITIS C SCREENING HEPATITIS C SCREENING [facility] Start: 2020 HIV SCREENING HIV SCREENING [facility] Start: 2018 Meningococcal B Vaccine: Consider Based On Risk (1 of 2 - Patient Seeks Protection) Meningococcal B Vaccine: Consider Based On Risk (1 of 2 - Patient Seeks Protection) [facility] Start: 2016 PEDS TO ADULT TRANSITION ANNUAL ASSESSMENT PEDS TO ADULT TRANSITION ANNUAL ASSESSMENT [facility] Start: 2012 MENINGOCOCCAL B: Consider based on risk (1 of 2 - Risk Bexsero 2-dose series) MENINGOCOCCAL B: Consider based on risk (1 of 2 - Risk Bexsero 2-dose series) [facility] Start: 2002 COVID-19 VACCINE (#1) COVID-19 VACCINE (#1) [facility] COVID & INFLUENZA A/ B & RSV NAAT, ROUTINE COVID & INFLUENZA A/B & RSV NAAT, ROUTINE Microbiology Routine URI, acute Exposure to influenza Ordered: 03/30/2023 [facility] Work Phone: Immunizations Immunization Date Immunization Notes Care Provider Fa ivania 08-20-2019 meningococcal polysaccharide (groups A, C, Y and W-135) diphtheria toxoid conjugate vaccine (MCV4P) Jami Weber MD Work Phone: [facility] 01-05-2016 Human Papillomavirus 9-valent vaccine Jami Weber MD Work Phone: [facility] 01-26-2014 human papilloma viru s vaccine, quadrivalent Jami Weber MD Work Phone: [facility] 01-26-2014 meningococcal polysaccharide (groups A, C, Y and W-135) diphtheria toxoid conjugate vaccine (MCV4P) Jami Weber MD Work Phone: [facility] 01-26-2014 tetanus toxoid, redu vianca diphtheria toxoid, and acellular pertussis vaccine, adsorbed Jami Weber MD Work Phone: [facility] 04-23-2008 influenza virus vacc ine, unspecified formulation Jami Weber MD Work Phone: [facility] Work Phone: 02-02-2008 varicella virus vaccine Britney Weber MD Work Phone: [facility] Work Phone: 02-19-2007 diphtheria, tetanus toxoids and acellular pertussis vaccine Jami Weber MD Work Phone: [facility] 02-19-2007 measles, mumps and rubella virus vaccine Jami Weber MD Work Phone: [facility] 02-19-2007 poliovirus vaccine, inactivated Jami Weber MD Work Phone: [facility] 05-22-2005 hepatitis B vaccine, pediatric or pediatric/adolescent dosage Jami Weber MD Work Phone: [facility] Work Phone: 02-29-2004 diphtheria, tetanus toxoids and acellular pertussis vaccine Jami Weber MD Work Phone: [facility] Work Phone: 02-29-2004 hepatitis B vaccine, pediatric or pediatric/adolescent dosage Jami Weber MD Work Phone: [facility] Work Phone: 10-04-2003 DTaP-hepatitis B and poliovirus vaccine Jami Weber MD Work Phone: [facility] Work Phone: 10-04-2003 haemophilus influenz ae type b vaccine, HbOC conjugate Jami Weber MD Work Phone: [facility] Work Phone: 08-20-2003 diphtheria, tetanus toxoids and acellular pertussis vaccine Jami Weber MD Work Phone: [facility] Work Phone: 08-20-2003 haemophilus influenz ae type b vaccine, HbOC conjugate Jami Weber MD Work Phone: [facility] Work Phone: 08-20-2003 pneumococcal conjuga te vaccine, 7 valent Jami Weber MD Work Phone: [facility] Work Phone: 08-20-2003 poliovirus vaccine, inactivated Jami Weber MD Work Phone: [facility] Work Phone: 05-27-2003 measles, mumps and rubella virus vaccine Jami Weber MD Work Phone: [facility] Work Phone: 05-27-2003 pneumococcal conjuga te vaccine, 7 valent Jami Weber MD Work Phone: [facility] Work Phone: 05-27-2003 varicella virus vaccine Britney Weber MD Work Phone: [facility] Work Phone: 2002 diphtheria, tetanus toxoids and acellular pertussis vaccine Jami Weber MD Work Phone: [facility] Work Phone: 2002 haemophilus influenz ae type b vaccine, HbOC conjugate Jami Weber MD Work Phone: [facility] Work Phone: 2002 pneumococcal conjuga te vaccine, 7 valent Jami Weber MD Work Phone: [facility] Work Phone: 2002 poliovirus vaccine, inactivated Jami Weber MD Work Phone: [facility] Work Phone: Payers Date Payer Category Payer Medicaid [id number] 2008 Medicaid [facility] MEDIC AID [facility] MEDICAID [id number] 2008-Present [phone] [address] [place] [address] Medicaid [id number] 2008 Medicaid [id number] 2008 Medicaid [id number] 2002 Unknown [id number] Social History Date Type Detail Facility Start: 05-15-2022 End: 12-04-2022 Tobacco smoking status [facility]IS Never smoked tobacco [facility] Start: 12-11-2021 End: 03-30-2023 Alcohol intake Current non-drinker of alcohol (finding) [facility] Start: 2002 Sex Assigned At Not on file [facility] Start: 12-01-2021 End: 05-15-2022 Exposure to SARS-CoV-2 (event) Not sure [facility] History of tobacco use Passive smoker [facility] Start: 05-15-2022 Tobacco use and exposure Smoke less tobacco non-user [facility] Start: 05-15-2022 Tobacco Comment Parents smoke in the home. [facility] Start: 12-04-2022 Tobacco use and exposure User of smo keless tobacco [facility] Start: 06-29-2022 End: 03-30-2023 History of Social function [facility] Start: 06-29-2022 End: 03-30-2023 Tobacco use panel [facility] National Score (1-10 0), lower number is lower risk 67 [facility] Start: 12-21-2022 [facility] Clinical Notes 12-11-2021 to 03-30-2023 Alexy Stringer MD - 03/30/2023 8:39 AM EDTPatient InstructionsDeonte Gaston APRN.TELECOMMUNICATIONS SWITCH TECHNICIAN - 12/04/2022 3:02 PM EDTShruthi Mendoza APRN.TELECOMMUNICATIONS SWITCH TECHNICIAN - 05/15/2022 8:37 AM ESTPatient Instructions Note Date & Type Note Facility 03-30-2023 Note HNO ID: [id number] Author: Alexy Stringer MD Service: ? Author [...] treatment window for influenza. Alexy Stringer MD [facility] 03-30-2023 History of Present illness Narrative [...] Alexy Stringer MD documented in this encounter [facility] 12-04-2022 Note HNO ID: [id number] Author: Deonte Gaston APRN.TELECOMMUNICATIONS SWITCH TECHNICIAN Service: ? Author Type: Nurse Practitioner Type: [...] 0.1 % TOPICAL CREAM Deonte Gaston APRN.CNP [facility] 12-04-2022 Instructions Deonte Gaston APRN.CNP - [...] plants grow in many areas across the [facility] and throughout the world. East of the [facility], poison sydnee commonly grows as a climbing vine. In the [place] area and west, poison sydnee tends to grow low to the ground as a shrub. Poison oak most often grows west of the [facility], and poison sumac inhabits boggy areas in the southeastern part of the [facility]. The plants are not usually found in [...] poison sydnee dermatitis. documented in this encounter [facility] 12-04-2022 History of Present illness Narrative Images [...] Deonte Gaston APRN.KIRK documented in this encounter [facility] 05-15-2022 Note HNO ID: [id number] Author: Shruthi Mendoza APRN.KIRK Service: ? Author Type: Nurse Practitioner Type: Progress Notes Filed: 05/15/2022 9:10 AM Note Text: This note was created using [employer]. Subjective Paddy Darnell is a 21 year [...] history is provided by the patient. No speech and language tutor was used. Dental Problem This is a [...] Breath sounds: Normal (more content not included)... [facility] 05-15-2022 History of Present illness Narrative This note was created using [employer]. Subjective Paddy Darnell is a 21 year [...] history is provided by the patient. No speech and language tutor was used. Dental Problem This is a [...] Diagnosis Date ADHD (attention deficit hyperactivity disorder) [facility] Neurology Anxiety Menarche 2014 Age 13 NEGATIVE [...] infection. No AOM EAC normal Shruthi Mendoza APRN.TELECOMMUNICATIONS SWITCH TECHNICIAN documented in this encounter [facility] 01-04-2022 History of Present illness Narrative FOLLOW UP VISIT PEDIATRIC ADHD SERVICE DATE: 01/04/2022 Paddy Darnell is a 21 year old female who [...] to do so). 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 She is currently looking for a job. She states she has trouble falling asleep at times. History was obtained from: mother and patient PDMP website checked and validated. All prescriptions have been APPROPRIATELY filled. No suspicious activity was identified. 01/04/2022 by Jami Weber MD PAST MEDICAL HISTORY Diagnosis Date ADHD (attention deficit hyperactivity disorder) [facility] Neu[facility] Anxiety Menarche 2014 Age 13 NEGATIVE HISTORY OF 01-26-2014 Normal Color Vision ROS: Abdominal pain: no Appetite problems: variable. [place] food makes her nauseated. Drowsiness: yes sometimes [...] which included preparing to see the patient, toxy-yj-[id number] patient care, completing clinical documentation, obtaining and/or reviewing separately obtained history, performing a medically appropriate examination and counseling and educating the patient/family/caregiver. SIGNATURE: Jami Weber MD PATIENT NAME: Paddy Darnell DATE: January 04, 2022 TIME: 3:41 PM documented in this encounter [facility] 01-04-2022 Instructions Jami Weber MD - 01/04/2022 [...] drinks Go! Be healthy, inside and out! [email or web address] documented in this encounter [facility] 12-11-2021 Instructions Jami Weber MD - 12/11/2021 [...] drinks Go! Be healthy, inside and out! [email or web address] documented in this encounter [facility] 12-11-2021 History of Present illness Narrative PEDIATRIC [...] TIME: 3:40 PM documented in this encounter [facility] Diagnosis Attention deficit hyperactivity disorder (ADHD), combined type- Primary [facility] Diagnosis Pain, dental- Primary Unspecified disorder of the teeth and supporting structures Ear pain, right Otalgia, unspecified [facility] Diagnosis Rhus dermatitis- Primary Contact dermatitis and other eczema due to plants (except food) [facility] Diagnosis URI, acute- Primary Acute upper respiratory infections of unspecified site Exposure to influenza Contact with or exposure to other viral diseases documented in this encounter [facility] Summary Purpose Family History No Family History Records FoundNo Family History Records FoundNo Family History Records Found Advance Directives No Advanced Directives Records FoundNo Advanced Directives Records FoundNo Advanced Directives Records Found Additional Source Comments INFORMATION SOURCE (unrecogn ized section and content) DATE CREATED AUTHOR AUTHOR'S ORGANIZ ATION 04/01/2023 [facility] DATE CREATED AUTHOR AUTHOR'S ORGANIZ ATION 06/29/2023 [facility] Source Comments (unrecognize d section and content) In the event this informatio n is protected by the Federal Confidentiality of Alcohol and Drug Abuse Patient Records regulations: The Federal rules restrict any use of the information to criminally investigate or prosecute any alcohol or drug abuse patient.[facility] the event this information is protected by the Federal Confidentiality of Alcohol and Drug Abuse Patient Records regulations: The Federal rules restrict any use of the information to criminally investigate or prosecute any alcohol or drug abuse patient.[facility] the event this information is protected by the Federal Confidentiality of Alcohol and Drug Abuse Patient Records regulations: The Federal rules restrict any use of the information to criminally investigate or prosecute any alcohol or drug abuse patient.[facility] the event this information is protected by the Federal Confidentiality of Alcohol and Drug Abuse Patient Records regulations: The Federal rules restrict any use of the information to criminally investigate or prosecute any alcohol or drug abuse patient.[facility] the event this information is protected by the Federal Confidentiality of Alcohol and Drug Abuse Patient Records regulations: The Federal rules restrict any use of the information to criminally investigate or prosecute any alcohol or drug abuse patient.[facility] Reason for Visit (unrecogniz ed section and [...] Care Teams (unrecognized sec tion and content) Polisher Sand Relationship Specialty Start Date End Date Jami Weber MD [address], [place] [address] PCP - General Pediatrics 02/03/14 FOR RECORDS [...] BE BASED ON THE PRIMARY CLINICAL RECORDS. [facility]. provides no warranty or guarantee of the accuracy or completeness of information in this document.
== END | disposition home or self-care (01) ==
LOC: US 12:07
PROVIDERS: PCP Nurse Practitioner Family; Referring Provider Obstetrics & Gynecology; Visit Provider Obstetrics & Gynecology
DX: O36.60X0 Maternal care for excessive fetal growth, unspecified trimester, not applicable or unspecified (principal); Z3A.00 Weeks of gestation of pregnancy not specified
CPT/HCPCS: 76816

== ENCOUNTER → 2023-08-22 | Outpatient (CLI) | payer MEDICAID, SELFPAY | END | disposition home or self-care (01) | LOC: LABSPEC 10:37 | PROVIDERS: PCP Nurse Practitioner Family; Referring Provider Advanced Practice Midwife; Visit Provider Advanced Practice Midwife | DX: Z34.90 Encounter for supervision of normal pregnancy, unspecified, unspecified trimester (principal); Z3A.00 Weeks of gestation of pregnancy not specified | CPT/HCPCS: 87081 ==

== ENCOUNTER → 2023-09-12 | Outpatient (CLI) | payer MEDICAID, SELFPAY ==
--- NOTE | 2023-09-12 16:52 | US_ITS ---
STUDY: SECOND AND THIRD TRIMESTER OBSTETRICAL ULTRASOUND REASON FOR EXAM: Female, 23 years old DELANEY LMP: December 07, 2022. TECHNIQUE: Transabdominal TECHNICAL QUALITY: Adequate. PRIOR ULTRASOUND: Comparison is made with prior study August 16, 2023. FINDINGS: There is a single intrauterine fetus. The fetus is in a cephalic presentation. There is demonstrated cardiac activity with a heart rate of 137 bpm. There is a normal amniotic fluid volume. The largest amniotic fluid pocket measures 6.6 cm. The amniotic fluid index (DELANEY) is 13.2 cm. The placenta is posterior in location and is not low lying. There are Grade 2 placental changes. The cervix was not measured due to the head positioning. The adnexal regions are not visualized. BIOMETRY: Age by LMP: 39 weeks, 6 days. JACQUELINE by LMP: September 13, 2023. US/OB Limited (No Biometrics) IMPRESSION: Normal amniotic fluid index. Electronically Signed: Dandre Mcarthur MD at 9:24 EDT ,
== END | disposition home or self-care (01) ==
LOC: US 16:51
PROVIDERS: PCP Nurse Practitioner Family; Referring Provider Obstetrics & Gynecology; Visit Provider Obstetrics & Gynecology
DX: O26.849 Uterine size-date discrepancy, unspecified trimester (principal); Z3A.00 Weeks of gestation of pregnancy not specified
CPT/HCPCS: 76815

== ENCOUNTER 2023-09-20 07:05 | Inpatient (IN) | payer MEDICAID, SELFPAY ==
[2023-04-29 00:36] VITALS: RESP 16
[2023-04-29 02:15] VITALS: RESP 16
[2023-09-20] VITALS (49 sets, daily range): BP systolic 88–137; BP diastolic 49–85; PULSE 56–106; RESP 16–21; TEMP 36.1–37.4; O2SAT 78–100; BMI 39.0
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
[2023-09-20] MEDS: Lactated Ringers 1,000 ML 50 ML IV (07:55)
[2023-09-20 08:42] LABS: Absolute Lymphocyte Count 2.23 X10^3/uL (0.83-4.51); Absolute Neutrophil Count 6.9 X10^3/uL (2.0-7.7); Basophil# 0.02 X10^3/uL; Basophil% 0.2 % (0-1); Eosinophil# 0.01 X10^3/uL; Eosinophils% 0.1 % (0-5); Hematocrit 35.4 % (37-47); Hemoglobin 11.4 g/dL (12.0-15.0); Lymphocyte # 2.23 X10^3/ul (0.83-4.51); Lymphocyte % 21.9 % (19-41); Mean Corp Hgb Conc 32.2 g/dL (32-36); Mean Corpuscular Volume 80.8 fL (81-99); Monocyte# 0.96 X10^3/uL; Monocyte% 9.4 % (0-10); NRBC Flagged by Analyzer 0 % (0-5); Neutrophil % 67.8 % (47-70); Platelet Count 358 K/mm3 (150-450); RBC Distribution Width CV 14.7 % (11.6-14.6); RBC Distribution Width SD 43.2 fl (35.1-43.9); Red Blood Count 4.38 M/mm3 (4.2-5.4); White Blood Count 10.2 K/mm3 (4.4-11.0)
[2023-09-20 09:16] LABS: Syphilis Antibodies Non-reactive
[2023-09-20] MEDS: Oxytocin 15 Units/NS 250ml 15 UNITS/250 ML IV.SOLN 2 UNITS IV (09:41)
[2023-09-20] MEDS: LACTATED RINGERS 500 ML 999 ML IV ×3 (13:10→21:03)
[2023-09-20] MEDS: fentaNYL-bupivacaine (epidural) 100 ML BAG EPIDURAL ×2 (17:15→22:08)
[2023-09-20] MEDS: Lactated Ringers 1,000 ML 200 ML IV (19:05)
[2023-09-20] MEDS: Ondansetron 4 MG/2 ML Vial IV (20:15)
[2023-09-20] MEDS: 0.9% Saline Lock 10 ML Syringe IV (20:17)
[2023-09-21] VITALS (18 sets, daily range): BP systolic 89–125; BP diastolic 56–78; PULSE 50–83; RESP 16–18; TEMP 36.4–37.4; O2SAT 97–98
[2023-09-21] MEDS: Ondansetron 4 MG/2 ML Vial IV (00:06)
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
--- NOTE | 2023-09-21 01:02 | PCM.DC ---
Discharge Instructions Diet Discharge Diet: No restrictions Activity Discharge Activity: Return to Normal Activity, May Not Drive (while taking narcotic pain medications.) and May Shower May resume sexual activity in: 4-6 weeks Dressing / Incision Call your doctor if your incision/area has: Continuous Slow Oozing, Sudden Increased Bleeding, Increased Pain/ Swelling, Increased Redness and Foul Smelling Discharge Follow Up Care Please Follow Up With: Danitza Frazier MD When: Call [phone] to make an appointment with your doctor in 6 weeks. If you had elevated blood pressure or 4th degree laceration, you will need to be seen in 2 weeks. Test Results: Test results from this visit will be discussed in further detail at your follow-up appointment, if applicable. Discharge Plan Admission Admit Date/Time: 09/20/23 07:05 Attending Provider: Danitza Frazier Primary Care Provider: Brandi Reyes Discharge Orders/Prescriptions Prescriptions: No Action PNV [id number]-[id number] 27 mg iron-800 mcg-200 mg combo pack 1 pkg PO DAILY ondansetron 4 mg tablet,disintegrating 4 mg PO Q4H PRN (Reason: nausea and vomiting) Qty: 60 2RF Hold Instructions: pt not needed at this time Referrals / Follow Up: Brandi Reyes, SWAGING MACHINE ADJUSTER-C [Primary Care Provider] - Disposition Disposition (needs filled in before D/C Order can be placed): Home, Self Care
[2023-09-21] MEDS: Oxytocin 15 Units/NS 250ml 15 UNITS/250 ML IV.SOLN 83 UNITS IV (01:20)
[2023-09-21] MEDS: Methylergonovine 0.2 MG/ML Ampul IM (01:21)
[2023-09-21] MEDS: Naproxen 500 MG Tablet PO ×2 (02:13→15:43)
[2023-09-21] MEDS: 0.9% Saline Lock 10 ML Syringe IV ×3 (02:19→04:28)
--- NOTE | 2023-09-21 09:53 | CASEMGMT ---
Social Work Assessment Labor and Delivery Unit Patient Address:[address] [place] [address] Phone number: [phone] Date of Referral: 09/20/23, 09/21/23 Time of Referral:? 134 Referred By: Danitza Frazier Date of Intervention: ?09/21/23? Time of Intervention:? 914 Reason for Referral:?THC use in , pt father is an addict pt's father hx substance abuse, pt hx THC use Sw completed chart review and acknowledges social work consult due to maternal use of THC and patient's father is an addict. Sw presented to bedside and introduced self to mother of baby (MOB- Randee) and father of baby (FOB- Dereck). Sw explained reason for sw involvement and completed psychosocial assessment. History obtained from: medical records, MOB and FOB Household composition: Currently residing in the home is MOB, FOB and now baby. MOB denies any issues or concerns with current residency. Patient's parent/guardian status:? ?Parents report that they have been together for three years, they met at a mutual friends house. MOB denies any issues or concerns with domestic violence or intimate partner violence. Medical History: ?ARMANDO is 23 year old female who is 1, para 0-now 1 following labor and delivery of . ARMANDO received routine care during with [place]. ARMANDO presented to hospital for induction of labor on 09/20/23. Baby was born on 09/20/24 via vaginal delivery at 40 weeks gestation. Baby, named Verena Roberson, was born weighing 8lb 9oz and her apgars were 8 and 9 at one and five minutes of life, respectfully. ARMANDO is bottle feeding, but states she has intentions of breast feeding when her milk comes in. ARMANDO states that she has not chosen a garnett mechanic yet, but wants to chose an [facility] provider in the [facility]. Educational Status:?Both parents graduated from high school. No concerns with reading, learning or comprehension reported. Financial Status:ERIC states that he is employed at an [employer]. FOBashir is able to take two weeks off of work. ARMANDO is unemployed, she reports that she was working at a half-way but quit in the middle of . Infant Supplies:??Parents have obtained all necessary baby supplies, including: car seat, safe sleep space, clothes, diapers, wipes and bottles/ feeding supplies. Childcare/Caregiver(s):?ARMANDO will be the primary caregiver to baby along with FOB when he is not at work. Transportation:?? FOBashir reports that he does not have a drivers license right now due to speeding tickets and he got into an accident without insurance. ARMANDO drives and has reliable transportation. ERIC gets to work by a co-worker. Programs/Agencies Involved: ??ARMANDO is connected to insurance provided by [employer], she is also receiving WIC. MOB is knowledgeable about calling and getting future appointment scheduled now that baby has been born. ? Children Services/Legal Issues:??No history of involvement. Padmaja informed parents of need for sw to make referral due to maternal use of THC during . MOB and FOB express understanding. Padmaja contacted [facility] and spoke to hotline screener. Behavioral Health Issues: ??Mental Health History:??FOB reports to having social anxiety. He reports that he does not like to be in crowds of more than 5 people. FOB states that he has healthy coping mechanisms and just doesn't attend situations where there will be large crowds. MOB states that she has been diagnosed with ADHD and anxiety, is not prescribed medications. MOB reports that she has been informed about baby blues and knows what to be on the lookout for. ? Substance Use History:?MOB reports that she used THC throughout her to help with nausea. MOB states that she used daily. ? Family History:??Maternal grandpa is an addict. MOB states that he uses all substances. 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 ??? Drug Screens: Urine screen not seen in MOB chart or baby chart. Padmaja assumes that MOB and baby urine will be positive for THC as MOB disclosed that she smoked the night prior to admission (09/18/24). ?? Family/Social Stressors:? MOB and FOB deny any issues, concerns or stressors at this time. Parents are mindful of their mental health history and have all necessary baby supplies. Support Systems: MOB states that both grandmas are their biggest supports at this time. Depression/Shaken Baby/Safe Sleeping:? Padmaja educated parents at length regarding signs and symptoms of baby blues and depression and anxiety to be on the lookout for. Sw provided parents with literature of mental health symptoms to be on the lookout for. FOB states that he would be able to recognize if MOB was struggling with her mental health during this period and he believes that he would know how to help and support her. Sw educated parents on shaken baby prevention and ABCs of safe sleep. Parents express understanding. ASSESSMENT:? MOB and baby admitted following labor and delivery. MOB with THC use during which warrants referral to be made to [facility]. Parents at bedside and report to having obtained all necessary baby supplies. Parents state they have help and support found in their mother's. MOB observed to provide loving and appropriate hands on care of . MOB states she wants to breast feed baby when her milk comes in however has been bottle feeding since delivery- will meet with her. Parents were provided resources on [facility] agencies that may be of assistance including mental health services and supports, Help Me Grow, and information on shaken baby syndrome and ABCs of safe sleep. Safe Plan of Care for related to substance use:? MOB was educated on not using substances around baby or when caring for baby. MOB states that she does not have intentions of using now that baby has been born. Sw educated MOB that if she does use THC or tobacco products to smoke outside of the home and change shirt, wash hands afterwards. MOB expressed understanding and agreement. PLAN:? MOB and baby to be discharged when medically ready. If Children Services decides to open the referral that will follow up with family once discharged to home. ?No other services requested or indicated. Caro Deleon, SUPERVISOR WOOL SHEARING, TIRE TRIMMER HAND
[2023-09-21] MEDS: Rho(D) Immune Globulin 300 MCG (1500 Unit) Syringe IV (15:41)
[2023-09-22 01:14] VITALS: BP 113/64; PULSE 57; RESP 16
--- NOTE | 2023-09-22 06:40 | PCM.PN.OB ---
Subjective Subjective Patient doing well without complaints. Tolerating PO. Ambulating and voiding without difficulty. feeding well. Denies chest pain, shortness of breath, calf pain/swelling, fevers, chills, lightheadedness. Objective Data Objective Data Vital Signs: Vital Signs Temp Pulse Resp BP Pulse Ox O2 Del Method 98.2 F 57 L 16 113/64 98 Room Air 09/21/23 20:20 09/22/23 01:14 09/22/23 01:14 09/22/23 01:14 09/21/23 11:04 09/22/23 01:14 Oxygen Delivery Method Room Air Weight: 220 lb 6 oz Body Mass Index (BMI) 39.0 Intake & Output: Intake and Output for Last 24 Hours 09/20/23 09/21/23 09/22/23 23:59 23:59 23:59 Intake Total 2806.41 / 2806.41 1031.23 / 1031.23 Output Total 250 / 250 1180 / 1180 Balance 2556.41 / 2556.41 -148.77 / -148.77 Lab / Micro Data 09/20/23 07:55 Labs: Laboratory Results - last 24 hr 09/21/23 02:25: Screen NEGATIVE, Baby's Blood Type O POSITIVE, Baby's ZAK NEGATIVE ROS Constitutional Constitutional: Reports systems reviewed and no addt'l complaints, except as documented Cardiovascular Cardiovascular: Reports systems reviewed and no addt'l complaints, except as documented Respiratory/Chest Respiratory/Chest: Reports systems reviewed and no addt'l complaints, except as documented Gastrointestinal Gastrointestinal: Reports systems reviewed and no addt'l complaints, except as documented Physical Exam Const alert, oriented x3 and no apparent distress HEENT Head and Scalp: atraumatic Resp normal respiratory effort GI soft to palpation and non-tender Bimanual Exam - Vag & Uterus: uterus non-tender Uterus Palpation: uterus fundus firm (below Umbilicus) Assessment & Plan (1) Vaginal delivery: COMMENT: SM IOL post dates girl 41 PLAN: Plan s/p PPD # 1 1. routine post delivery care 2. breast feeding- support given 3. rh neg 4. rubella immune
[2023-09-22 07:40] VITALS: BP 125/74; PULSE 84; RESP 16; TEMP 36.6; O2SAT 98
== END 2023-09-22 09:15 | disposition home or self-care (01) | DRG 560 ==
PROVIDERS: Admitting Provider Obstetrics & Gynecology; PCP Nurse Practitioner Family; Referring Provider Obstetrics & Gynecology; Visit Provider Obstetrics & Gynecology
DX: O48.0 Post-term pregnancy (principal); Z37.0 Single live birth; F17.210 Nicotine dependence, cigarettes, uncomplicated; O99.334 Smoking (tobacco) complicating childbirth; O69.81X0 Labor and delivery complicated by cord around neck, without compression, not applicable or unspecified; Z3A.41 41 weeks gestation of pregnancy; Z86.16 Personal history of COVID-19
CPT/HCPCS: 59025; 59050; 85025; 85461; 86780; 86850; 86900; 86901; 90384; 99221; J7120; A4216; G0378; J2405; J2790; J2791

== ENCOUNTER → 2023-10-04 | Outpatient (CLI) | payer MEDICAID, SELFPAY | END | disposition home or self-care (01) | LOC: LABSPEC 16:24 | PROVIDERS: PCP Nurse Practitioner Family; Referring Provider Advanced Practice Midwife; Visit Provider Advanced Practice Midwife | DX: R31.9 Hematuria, unspecified (principal); R30.0 Dysuria | CPT/HCPCS: 87086; 87088 ==

== ENCOUNTER 2024-03-05 13:36 | Emergency (ER) | payer MEDICAID, SELFPAY ==
[2024-03-05 13:37] VITALS: BP 120/70; PULSE 93; RESP 16; TEMP 36.2; O2SAT 99; BMI 36.3
--- NOTE | 2024-03-05 14:47 | ED.RN ---
YOU GUYS ARE BUSY, IM JUST GOING TO GO TO MY OB TOMORROW.
== END 2024-03-05 14:46 | disposition left against medical advice (07) ==
LOC: ED 15:14
PROVIDERS: PCP Nurse Practitioner Family
DX: Z53.21 Procedure and treatment not carried out due to patient leaving prior to being seen by health care provider (principal)

== ENCOUNTER 2024-03-06 14:34 | Emergency (ER) | payer MEDICAID, SELFPAY ==
[2024-03-06 14:35] VITALS: BP 115/72; PULSE 91; RESP 16; TEMP 36.5; O2SAT 97; BMI 34.7
--- NOTE | 2024-03-06 15:24 | EDS_ITS ---
HPI HPI - Female History of Present Illness Chief Complaint: Female C/O Informant: patient Narrative Narrative: Patient is a 23-year-old female that is 5 months (not currently breast-feeding) presenting with continued dysuria and vulvar discomfort. Patient states that she was having painful urination and vaginal discomfort for 1 to 2 weeks. She initially went to [facility] on 03/02. At that time she was diagnosed with BV and UTI. She started on Macrobid and Flagyl. She had a urine gonorrhea and chlamydia which were negative. She notes that she did have a new sexual partner couple months ago. She is concerned because she thinks that sexual partner had herpes and she is worried that she might now have herpes given her continued symptoms. She has not noticed any sores down there but does have pain when she wipes. She was supposed to have an appointment with her FEDERAL MEDIATION COMMISSIONER/credit card control clerk today but she had an ultrasound to confirm her IUD placement at the same time so she missed the appointment. It was rescheduled for the next week but patient did not think she could wait that long so she came to the emergency room. Patient also states she was told she needed to return for repeat urine test was not sure why. No other complaints or concerns at this time. [facility] Medical History Vaginal delivery macrosomia Home Medications ?Medication ?Instructions ?Recorded ?Last Taken ?Type [id number] 27 mg-folic 1 pkg PO DAILY 02/19/23 09/19/23 History acid 800 mcg-dha 200 mg-lut.oral pack metronidazole 500 mg tablet 500 mg PO BID 7 days #14 tabs 03/03/24 Unknown Rx ondansetron 4 mg disintegrating 4 mg PO Q4H PRN nausea and 03/03/24 Unknown Rx tablet vomiting #60 tabs ibuprofen 600 mg tablet 600 mg PO Q6H PRN PRN pain #20 03/06/24 Unknown Rx TABLETS valacyclovir 1 gram tablet 1,000 mg PO DAILY #7 tabs 03/06/24 Unknown Rx (Valtrex) Allergy/AdvReac Type Severity Reaction Status Date / Time amoxicillin Allergy Hives Verified 03/06/24 14:38 Penicillins (PCN) Allergy Hives Verified 03/06/24 14:38 adhesive tape AdvReac Rash Verified 03/06/24 14:38 Family History Grandmother Hypertension Other Brain cancer Breast cancer Liver cancer Lung cancer Surgical History s/p tongue clipped Social History household members: spouse housing: apartment number of children: 1 current occupational status: unemployed Smoking Status: Current every day smoker tobacco type: cigarettes alcohol intake: never substance use type: does not use caffeine: Yes what type of physical activity do you participate in: walking seatbelt use: always ROS ROS ED Constitutional Constitutional ED: Denies chills or fever(s) Gastrointestinal Gastrointestinal: Denies abdominal pain, nausea or vomiting Genitourinary Genitourinary ED: Reports dysuria and other Details: Vaginal irritation, discharge ; Denies hematuria or urinary frequency Musculoskeletal Musculoskeletal: Denies arthralgias or myalgias Integumentary Denies rash EXAM Physical Exam Const Vital Signs: 03/06/24 14:35 Temperature 97.7 F L Temperature Source Oral Pulse Rate 91 Respiratory Rate 16 Blood Pressure 115/72 Blood Pressure Mean 86 Pulse Ox 97 Oxygen Delivery Method Room Air Positive well nourished and well developed General Appearance ED: well developed and NAD Chest Wall inspection of chest normal Resp normal respiratory effort Cardio regular rate and regular rhythm GI normal to inspection, nondistended, normoactive bowel sounds, soft to palpation and non-tender Narrative: External genitalia exam performed with manufacturing chief engineer in the room. On external genital exam patient does have a small lesion over the left labia majora that is exquisitely painful to light palpation. It does not appear vesicular and there is no surrounding erythema. Vaginal bleeding is present consistent patient currently menstruating. Patient does not tolerate internal pelvic exam. Extremity normal to inspection General Extremety ED: Negative for edema General Extremity: Negative for edema Neuro oriented x3 Sensorium / Orientation: alert Psych mental status grossly normal MDM MDM MDM Narrative Medical decision making narrative: Patient is evaluated for vaginal pain and discomfort. Recently was diagnosed with BV. Also has had exposure to genital herpes. On exam I am concerned for genital herpes as she has a small lesion on the left labia that is exquisitely painful for palpation. Is not consistent with a both Winn and cyst. There is not appear to be any abscess or cellulitis. The lesion itself does not appear completely typical with herpes simplex however is been present for over a week already. Will empirically treat with Valtrex. Patient will follow-up outpatient with her FED[employer] MEDIATION COMMISSIONER. If needed they can perform serology at that time. Patient is given topical lidocaine for the pain. Will also be prescribed NSAIDs. Patient counseled on safe sex practices. She asked if it is okay for her to still interact or kiss her 6-month-old daughter. Discussed that if she has not touched her genitalia and does not have any lesions on her mouth and it will be transmitted. It appears that patient's current significant other also has had symptoms consistent with herpes as well. History & Record Review Additional record(s) reviewed:: Prior outpatient record Discharge Plan Triage Chief Complaint: Female C/O ED Provider: Dayna Rich Dx/Rx/DC Orders Clinical Impression: Genital herpes simplex Instructions: ED Herpes Genitalis, Hsv: Type Ii Prescriptions: New valacyclovir [Valtrex] 1 gram tablet 1,000 mg PO DAILY Qty: 7 0RF ibuprofen 600 mg tablet 600 mg PO Q6H PRN PRN (Reason: pain) Qty: 20 0RF No Action PNV [id number] 27 mg iron-800 mcg-200 mg combo pack 1 pkg PO DAILY ondansetron 4 mg tablet,disintegrating 4 mg PO Q4H PRN (Reason: nausea and vomiting) Qty: 60 0RF metronidazole 500 mg tablet 500 mg PO BID 7 Days Qty: 14 0RF Primary Care Provider: Brandi Reyes Referrals: Brandi Reyes NP-C [Primary Care Provider] - Shauna Saldivar NP, NP-C [Med Staff - Adv Practice Prof] - Keep Wes appointment Activity Restrictions/Additional Instructions: Patient here degree of pain and physical exam I am concerning for herpes simplex infection in your labia. Print Language: Vietnamese Disposition Disposition: Home, Self Care
[2024-03-06] MEDS: Lidocaine Jelly 2% 20 ML Syringe (URO-JET) 1 APPLIC TOPICAL (16:13)
== END 2024-03-06 16:21 | disposition home or self-care (01) ==
PROVIDERS: Emergency Provider Emergency Medicine; PCP Nurse Practitioner Family; Visit Provider Emergency Medicine
DX: O98.33 Other infections with a predominantly sexual mode of transmission complicating the puerperium (principal); A60.04 Herpesviral vulvovaginitis; O99.335 Smoking (tobacco) complicating the puerperium; F17.210 Nicotine dependence, cigarettes, uncomplicated; Z30.431 Encounter for routine checking of intrauterine contraceptive device
CPT/HCPCS: 76830; 76856; 99282

== ENCOUNTER → 2024-03-06 | Outpatient (CLI) | payer MEDICAID, SELFPAY ==
--- NOTE | 2024-03-06 13:46 | US_ITS ---
HISTORY: pain, iud. TECHNIQUE: Transabdominal and transvaginal pelvic ultrasound was performed with ryan scale and color Doppler evaluation. 96 images. COMPARISON: 09/12/2023. FINDINGS: UTERUS: 9.1 x 4.6 x 3.5 cm. Anteverted. ENDOMETRIAL THICKNESS: 3 mm. Intrauterine device in place. RIGHT OVARY: 2 x 2.8 x 3.5 cm. No adnexal masses. LEFT OVARY: 2.4 x 2.6 x 3.2 cm. No adnexal masses. FREE FLUID: None. US/Pelvic w/ Transvaginal IMPRESSION: Intrauterine device in place. Electronically Signed: Adrianna Barry MD at 14:45 EDT ,
== END | disposition home or self-care (01) ==
PROVIDERS: PCP Nurse Practitioner Family; Referring Provider Nurse Practitioner Women's Health; Visit Provider Nurse Practitioner Women's Health
DX: Z30.431 Encounter for routine checking of intrauterine contraceptive device (principal); R10.2 Pelvic and perineal pain
CPT/HCPCS: 76830; 76856

== ENCOUNTER → 2024-03-18 | Outpatient (CLI) | payer MEDICAID, SELFPAY ==
[2024-03-20 20:08] LABS: Chlamydia By Nucleic Acid AMP Negative (Negative); Gonococcus By Nucleic Acid AMP Negative (Negative)
== END | disposition home or self-care (01) ==
LOC: LABSPEC 15:59
PROVIDERS: PCP Nurse Practitioner Family; Referring Provider Nurse Practitioner Family; Visit Provider Nurse Practitioner Family
DX: Z20.2 Contact with and (suspected) exposure to infections with a predominantly sexual mode of transmission (principal)
CPT/HCPCS: 87070; 87205; 87491; 87591

== ENCOUNTER → 2024-10-05 | Outpatient (CLI) | payer MEDICAID, SELFPAY ==
[2024-10-08 11:10] LABS: HPV Reflexed? NOT INDICATED
== END | disposition home or self-care (01) ==
LOC: LABSPEC 11:11
PROVIDERS: PCP Nurse Practitioner Family; Referring Provider Nurse Practitioner Women's Health; Visit Provider Nurse Practitioner Women's Health
DX: Z12.4 Encounter for screening for malignant neoplasm of cervix (principal)
CPT/HCPCS: G0145; 88175

== ENCOUNTER → 2024-10-05 | Outpatient (CLI) | payer MEDICAID, SELFPAY ==
[2024-10-05 13:38] LABS: HIV Nonreactive (Nonreactive); Hepatitis B Surface Antigen Nonreactive (Nonreactive); Hepatitis C Antibody Nonreactive (Nonreactive); Syphilis Antibodies Nonreactive (Nonreactive)
== END | disposition home or self-care (01) ==
PROVIDERS: PCP Nurse Practitioner Family; Referring Provider Nurse Practitioner Family; Visit Provider Nurse Practitioner Family
DX: Z12.4 Encounter for screening for malignant neoplasm of cervix (principal); Z20.2 Contact with and (suspected) exposure to infections with a predominantly sexual mode of transmission
CPT/HCPCS: 36415; 86703; 86780; 86803; 87340; 88175; G0145

== ENCOUNTER → 2024-10-23 | Outpatient (CLI) | payer MEDICAID, SELFPAY | END | disposition home or self-care (01) | LOC: LABSPEC 15:30 | PROVIDERS: PCP Nurse Practitioner Family; Referring Provider Obstetrics & Gynecology; Visit Provider Obstetrics & Gynecology | DX: N89.8 Other specified noninflammatory disorders of vagina (principal); R30.0 Dysuria | CPT/HCPCS: 87070; 87077; 87086; 87088; 87205 ==

== ENCOUNTER → 2025-04-15 | Outpatient (CLI) | payer SELFPAY ==
[2025-04-15 18:09] LABS: hCG Titer Quant., Serum < 1 mIU/mL (<9 non-preg)
== END | disposition home or self-care (01) ==
PROVIDERS: PCP Nurse Practitioner Family; Visit Provider Obstetrics & Gynecology
DX: N91.2 Amenorrhea, unspecified (principal)
CPT/HCPCS: 36415; 84702